=== PATIENT | male | born 2000 | race Caucasian/White ===

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

== ENCOUNTER 2020-09-15 16:31 | Emergency (ER) | payer OTHER ==
[~2020-09-15 16:31] MED LIST: TORADOL 10 MG T10 MG PO
[2020-09-15] MEDS ORDERED: CEPHALEXIN500 M1 PO (17:50)
[2020-09-15] MEDS ORDERED: BENADRYL 50MG C50 MG PO (17:50)
== END 2020-09-15 17:56 | disposition home or self-care (01) ==
LOC: ER1 16:31
DX: L25.9 Unspecified contact dermatitis, unspecified cause (principal)
CPT/HCPCS: 87081; 87880; 96372; 99283; J1100; J1200